=== PATIENT | female | born 2000 | race Caucasian/White ===

== ENCOUNTER 2020-05-16 13:20 | Outpatient (REF) | payer OTHER, SELFPAY ==
[2020-05-16 16:00] LABS: SARS COV2 PCR INHOUSE NEGATIVE (Negative)
== END 2020-05-16 13:21 | disposition home or self-care (01) ==
LOC: HO.LAB 13:20
PROVIDERS: Visit Provider Internal Medicine
DX: Z20.822 Contact with and (suspected) exposure to COVID-19 (principal)
CPT/HCPCS: C9803; U0003

== ENCOUNTER 2020-06-23 10:15 | Outpatient (REF) | payer OTHER, SELFPAY ==
[2020-06-23 10:33] LABS: COVID-19 Test Negative (Negative)
== END 2020-06-23 10:16 | disposition home or self-care (01) ==
LOC: HO.LAB 10:15
PROVIDERS: Visit Provider Internal Medicine
DX: Z20.822 Contact with and (suspected) exposure to COVID-19 (principal)
CPT/HCPCS: 36415; 87635; C9803